=== PATIENT | female | born 1975 | race Caucasian/White ===

== ENCOUNTER 2022-04-18 19:16 | Emergency (ER) | payer OTHER ==
[~2022-04-18] VITALS: Ht 157.5 cm; Wt 71.8 kg
[2022-04-18 20:07] VITALS: BP 134/84
--- NOTE | 2022-04-18 20:15 | NUR ---
PT TAKEN BACK TO LOBBY.
[2022-04-18] MEDS: ACETAMINOPHEN 325 MG TAB PO ONE (20:31)
--- NOTE | 2022-04-18 22:10 | NUR ---
Patient ambulated to bed 8.
--- NOTE | 2022-04-18 22:21 | NUR ---
PT STATES SHE BONES HURT. CHEST PAIN, WEAKNESS SINCE MONDAY . PT HAD A COUGH BUT DENIES N/V/D; SKIN IS PINK/WARM/DRY; AAOX4 WITH EVEN AND STEADY GAIT; LUNGS CLEAR BL; HR EVEN AND REGULAR; PT DENIES ANY FEVER, CP, SOB, OR COUGH AT THIS TIME; PATIENT VSS; PATIENT POSITIONED FOR COMFORT; HOB ELEVATED; BEDRAILS UP X2; PT TOOK TYLENOL FOR PAIN. PT STATES 05/06 PMH: ASTHMA RX: ALBUTEROL LMP: TODAY
--- NOTE | 2022-04-18 22:47 | NUR ---
Dr. Zimmerman examming patient.
[2022-04-18] MEDS: KETOROLAC 30 MG/ML VIAL IM ONE (23:03)
--- NOTE | 2022-04-18 23:12 | NUR ---
AMBULATED PATIENT TO BR.
[2022-04-18] MEDS ORDERED: CEPH-588 PO (23:22)
[2022-04-18 23:35] VITALS: BP 127/86
--- NOTE | 2022-04-18 23:35 | NUR ---
The patient's care was reviewed and supervised by Keely Camp RN.
== END 2022-04-18 23:35 | disposition home or self-care (01) ==
LOC: MED 19:16
DX: B34.9 Viral infection, unspecified (principal); M79.10 Myalgia, unspecified site; N39.0 Urinary tract infection, site not specified; J45.909 Unspecified asthma, uncomplicated; Z79.899 Other long term (current) drug therapy
CPT/HCPCS: 71045; 81002; 96372; 99283; J1885